=== PATIENT | female | born 1990 | race Caucasian/White ===

== ENCOUNTER 2020-07-24 22:42 | Outpatient (CLI) | payer BC, OTHER | END 2020-07-25 02:29 | disposition home or self-care (01) | LOC: GENOP 22:42 | DX: O46.93 Antepartum hemorrhage, unspecified, third trimester (principal); O36.8130 Decreased fetal movements, third trimester, not applicable or unspecified; O99.891 Other specified diseases and conditions complicating pregnancy; M54.5 Low back pain; O99.283 Endocrine, nutritional and metabolic diseases complicating pregnancy, third trimester; E28.2 Polycystic ovarian syndrome; O99.353 Diseases of the nervous system complicating pregnancy, third trimester; G43.909 Migraine, unspecified, not intractable, without status migrainosus; Z79.84 Long term (current) use of oral hypoglycemic drugs; Z3A.28 28 weeks gestation of pregnancy | CPT/HCPCS: 81001; 96360; 96361 ==

== ENCOUNTER 2020-10-04 13:31 | Outpatient (CLI) | payer BC ==
[2020-10-04 14:16] LABS: HEMOGLOBIN 11.8 gm/dl (12.3-15.3); RED BLOOD COUNT 3.85 M/UL (4.00-5.10); WHITE BLOOD COUNT 9.9 K/UL (4.5-11.0)
[2020-10-05] MEDS ORDERED: GLUCOPHAGE XR500 M1 PO (06:31)
[2020-10-05] MEDS ORDERED: FEROSUL325 MG PO (06:31)
[2020-10-05] MEDS ORDERED: PRENATABS FA T1 EACH PO (06:32)
[2020-10-05] MEDS ORDERED: IBU600 MG PO (08:14)
[2020-10-05] MEDS ORDERED: HYDROCODON-ACE1 EAC4 PO (08:14)
[2020-10-05] MEDS ORDERED: COLACE100 MG PO (08:14)
== END 2020-10-04 15:03 | disposition home or self-care (01) ==
LOC: GENOP 13:31
PROVIDERS: Obstetrics & Gynecology
DX: Z01.812 Encounter for preprocedural laboratory examination (principal); Z20.822 Contact with and (suspected) exposure to COVID-19
CPT/HCPCS: 36415; 81001; 85025; U0002

== ENCOUNTER 2020-10-05 05:40 | Inpatient (IN) | payer BC ==
[~2020-10-05] VITALS: Ht 172.7 cm; Wt 109.8 kg
[2020-10-05] MEDS ORDERED: GLUCOPHAGE XR500 M1 PO (06:31)
[2020-10-05] MEDS ORDERED: FEROSUL325 MG PO (06:31)
[2020-10-05] MEDS ORDERED: PRENATABS FA T1 EACH PO (06:32)
[2020-10-05] MEDS ORDERED: HYDROCODON-ACE1 EAC4 PO (08:14)
[2020-10-05] MEDS ORDERED: COLACE100 MG PO (08:14)
[2020-10-05] MEDS ORDERED: IBU600 MG PO (08:14)
[2020-10-06 07:43] LABS: HEMOGLOBIN 10.3 gm/dl (12.3-15.3)
== END 2020-10-07 13:50 | disposition home or self-care (01) | DRG 788 ==
LOC: OB 05:40
PROVIDERS: ADMIT Obstetrics & Gynecology
PROC: 4A1HXCZ Monitoring of Products of Conception, Cardiac Rate, External Approach (ICD-10-PCS; 2020-10-05)
PROC: 10D00Z1 Extraction of Products of Conception, Low, Open Approach (ICD-10-PCS; principal; 2020-10-05 07:30)
DX: O34.211 Maternal care for low transverse scar from previous cesarean delivery (principal); Z3A.39 39 weeks gestation of pregnancy; Z37.0 Single live birth; Z20.822 Contact with and (suspected) exposure to COVID-19; O32.8XX0 Maternal care for other malpresentation of fetus, not applicable or unspecified; O99.62 Diseases of the digestive system complicating childbirth; K21.9 Gastro-esophageal reflux disease without esophagitis; Z83.3 Family history of diabetes mellitus; Z82.49 Family history of ischemic heart disease and other diseases of the circulatory system; Z82.0 Family history of epilepsy and other diseases of the nervous system; O99.02 Anemia complicating childbirth; O62.2 Other uterine inertia
CPT/HCPCS: 36415; 36600; 81001; 82800; 85014; 85018; 85025; 90715; C9113; J0690; J2210; J2274; J2405; J2550; J2590; J3010; J7120; U0002

== ENCOUNTER → 2021-06-13 | Outpatient (CLI) | payer BC ==
[~2021-06-13] MED LIST: COLACE100 MG PO; FEROSUL325 MG PO; GLUCOPHAGE XR500 M1 PO; HYDROCODON-ACE1 EAC4 PO; IBU600 MG PO; PRENATABS FA T1 EACH PO
== END ==
LOC: US 11:00
DX: N64.4 Mastodynia (principal)
CPT/HCPCS: 76641-RT